=== PATIENT | male | born 1965 | race Caucasian/White ===

== ENCOUNTER 2017-11-28 10:34 | Day surgery (SDC) | payer OTHER ==
--- NOTE | 2017-11-28 09:30 | PREOP ---
ADMISSION DATE: 11/28/2017 HISTORY OF PRESENT ILLNESS: Jeff Jean-Baptiste is a 52-year-old male, [place] resident, who is seen today for preop examination. He is scheduled for bilateral cataract surgery, left eye on 11/28/2017, right eye to follow in November of 2017. 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 Consultation consideration. Scheduled for the above surgery at [facility]– [place], Same Day Surgery, Dr. Rob De La Fuente, ophthalmology. Risks and benefits per Dr. De La Fuente. MEDICATIONS: Daily medications include Flexeril 10 mg one p.o. at bedtime, muscle spasm; p.r.n. Tylenol; Pepcid 20 mg one p.o. daily, GERD. ALLERGIES: No medication, environmental, or latex allergies. PAST MEDICAL HISTORY: Significant for previous left lower leg fracture, it was crushed by truck axle, surgical intervention with removal of plate. No other operative procedures, hospitalizations, unusual childhood diseases, major injuries, or fractures. SOCIAL HISTORY: Resides in [place]. Works for the [employer]. Has a long-term significant other, no children. Of significance, iwr-ejom-iyu- day smoker. No alcohol consumption. No illicit drug use. FAMILY HISTORY: Noncontributory. REVIEW OF SYSTEMS: GENERAL: Feeling generally well. HEENT: Eyes; please see HPI. Impaired vision. Ears; some difficulty in crowds, mild tinnitus. Oropharynx; intact dentition, no loose teeth. CHEST: No cough, wheeze, or congestion. CARDIOVASCULAR: Denies chest pain, palpitations, or syncope. GI: Regular predictable stools, no blood in stools. : Good voiding pattern. No blood in urine. SKIN: No new lesions, eruptions, or moles. ENDOCRINE: No excessive thirst or urination. ALLERGIC: No chronic cough, wheeze, or congestion. PSYCHIATRIC: Mood stable. PHYSICAL EXAMINATION: VITAL SIGNS: Stable. Weight 165 pounds, height 69-1/4 inches, 98.5 degrees is the temperature, 80 is the pulse, respirations 20, 120/70 blood pressure. GENERAL: Young man, cooperative, conversant, and appropriate. HEENT: Funduscopic; benign, lens opacity is significant, left greater right. Clear nasal discharge. Midline septum. No polyps. Bright tympanic membranes. Minimal cerumen obstruction. Mouth and oropharynx clear. Fair dentition. No loose teeth. NECK: Benign. Thyroid small. Some reactive lymphadenopathy, benign in nature. CHEST: Clear in all lung heller. No adventitious sounds on auscultation. HEART: Regular without ectopy or murmur on auscultation. BREASTS: Normal male breasts. Neck, axilla, and groin; no adenopathy. ABDOMEN: Benign. No hepatosplenomegaly. : Deferred. RECTAL: Deferred. LABORATORY STUDIES: None indicated. ASSESSMENT: 1. Preop examination for upcoming cataract surgery. No contraindication. 2. Previous left ankle fracture with plate and plate removal. 3. Ulp-ijkh-wnx-day smoker. PLAN: No contraindications. Certainly encouraged to quit smoking now sooner than later; risks and benefits long-term. No adjustments of medications, will do well. /[id number] FABIO/BESSY
[2017-11-28] MEDS ORDERED: Sodium Chloride 0.9% 10 ML Syringe FLUSH PRN (11:00)
[2017-11-28] MEDS ORDERED: Propofol 200 MG/20 ML SDV IV ONE (14:15)
--- NOTE | 2017-11-28 21:46 | OR ---
DATE OF OPERATION: 11/28/2017 SURGEON: Rob De La Fuente MD PREOPERATIVE DIAGNOSIS: Cataract, left eye. POSTOPERATIVE DIAGNOSIS: Cataract, left eye. PROCEDURES: Phacoemulsification of cataract left eye with placement of an Mtz, model ZCB00, 19.5 diopter, foldable, posterior chamber intraocular lens. ENROLLMENT MANAGEMENT MANAGER: None. DESCRIPTION OF PROCEDURE: Peribulbar anesthetic was performed using a mixture of 2% lidocaine with Wydase. The patient was prepped and draped in the usual fashion. A 3 mm fornix based conjunctival flap was performed at the 11:30 position. Hemostasis was obtained using diathermy, and a 2.8 mm grooved near clear corneal incision was then made. A stab incision was made into the anterior chamber at the 2:30 position and a second stab wound incision was made underlying the grooved near clear corneal incision. Viscoat was instilled into the anterior chamber, and a continuous tear capsulotomy was performed. Hydrodissection was accomplished with balanced salt solution, and the nucleus was removed in a divide and conquer fashion. The remaining cortical material was removed with the irrigation and aspiration unit. Viscoat was instilled into the anterior chamber, and an Mtz, model ZCB00, 19.5 diopter, foldable, posterior chamber intraocular lens was placed into the capsular bag, the haptics being positioned at the 1 and 7 o'clock positions. The residual Viscoat was removed from the anterior chamber and the anterior chamber reformed with balanced salt solution. The wound was checked and noted to be watertight. The conjunctiva was secured in its original position with diathermy. Alphagan and Maxitrol Ointment were then placed into the patient's eye. The patient tolerated the procedure well and it was without complication. Elapsed phacoemulsification time was 5.1 seconds. Postoperative instructions as related to activities as well as medications were reviewed with the patient. The patient was instructed to return to see me on the day following surgery for the first postoperative check. The patient was also instructed to contact me prior to that time if he were to have any problems concerning superior and inferior rectus bridle sutures. ADDENDUM: Because of minor patient's discomfort, 0.2 mL of 1% nonpreserved lidocaine was instilled in the anterior chamber. This resolved the patient's discomfort. /[id number] DEG/MODL CC: PAOLA LAWSON MD MTDD
== END 2017-11-28 15:20 | disposition home or self-care (01) ==
LOC: FB.SDS 10:34
PROVIDERS: ATTEND Ophthalmology
DX: H26.9 Unspecified cataract (principal); Z79.899 Other long term (current) drug therapy; F17.210 Nicotine dependence, cigarettes, uncomplicated
CPT/HCPCS: 66984; C1780; J2704; J7050

== ENCOUNTER 2017-12-26 08:40 | Day surgery (SDC) | payer OTHER ==
[~2017-12-26 08:40] MED LIST: Sodium Chloride 0.9% 10 ML Syringe FLUSH PRN
[2017-12-26] MEDS ORDERED: Propofol 200 MG/20 ML SDV IV ONE (10:30)
--- NOTE | 2017-12-27 08:39 | OR ---
DATE OF OPERATION: 12/26/2017 SURGEON: Rob De La Fuente MD PREOPERATIVE DIAGNOSIS: Cataract right eye. POSTOPERATIVE DIAGNOSIS: Same. OPERATION PERFORMED: Phacoemulsification of cataract right eye with placement of an Mtz, model ZCB00, 19.5 diopter, foldable, posterior chamber intraocular lens. TREE WRAPPER: None. DESCRIPTION OF PROCEDURE: Peribulbar anesthetic was performed using a mixture of 2% lidocaine with Wydase. The patient was prepped and draped in the usual fashion. A 3 mm fornix based conjunctival flap was performed at the 12 o'clock position. Hemostasis was obtained using diathermy, and a 2.8 mm grooved near clear corneal incision was then made. A stab incision was made into the anterior chamber at the 2:30 position and a second stab wound incision was made underlying the grooved near clear corneal incision. Viscoat was instilled into the anterior chamber, and a continuous tear capsulotomy was performed. Hydrodissection was accomplished with balanced salt solution, and the nucleus was removed in a divide and conquer fashion. The remaining cortical material was removed with the irrigation and aspiration unit. Viscoat was instilled into the anterior chamber, and an Mtz, model ZCB00, 19.5 diopter, foldable, posterior chamber intraocular lens was placed into the capsular bag, the haptics being positioned at the 3 and 9 o'clock positions. The residual Viscoat was removed from the anterior chamber and the anterior chamber reformed with balanced salt solution. The wound was checked and noted to be watertight. The conjunctiva was secured in its original position with diathermy. Alphagan and Maxitrol Ointment were then placed into the patient's eye. The patient tolerated the procedure well and it was without complication. Elapsed phacoemulsification time was 17.8 seconds. Postoperative instructions as related to activities as well as medications were reviewed with the patient. The patient was instructed to return to see me on the day following surgery for the first postoperative check. The patient was also instructed to contact me prior to that time if he were to have any problems. ADDENDUM: Because of minor patient's discomfort, 0.2 mL of mixture of lidocaine, phenylephrine, balanced salt solution were instilled in the anterior chamber. This resolved the patient's discomfort. /[id number] DEG/MODL CC: PAOLA LAWSON MD MTDD
== END 2017-12-26 11:53 | disposition home or self-care (01) ==
LOC: FB.SDS 08:40
PROVIDERS: ATTEND Ophthalmology
DX: H26.9 Unspecified cataract (principal); Z79.899 Other long term (current) drug therapy; F17.210 Nicotine dependence, cigarettes, uncomplicated
CPT/HCPCS: 66984; C1780; J2704; J7050